=== PATIENT | female | born 1940 | race Caucasian/White ===

== ENCOUNTER → 2017-05-28 | Outpatient (CLI) | payer MEDICARE, OTHER ==
[~2017-05-28] MED LIST: AMLO2.5T74 PO; CA C1TAB85 PO; CELE-1 PO; CEPH250S35 PO; CHOL10005 PO; CYC10 PO; CYCL10TA29 PO; HCTZ; HYDR25SU35 RC; LISI-351 PO; LOVA40TA89 PO; MELO-149 PO; MELO-207 PO; MET500 PO; METF-410 PO; METF-420 PO; METF500T4 PO; METO100T20 PO; OXY5 PO; OXYB5TAB86 PO; PNEU0.5D3 IM; POLY17PO25 PO; PRA20 PO; PRED-1 PO; PRED20TA6 PO; RABE20TA33 PO; RANI-318 PO; SIMV-49 PO; SPIR1TAB26 PO; SPIR1TAB28 PO; TRAM-420 PO; TRAZ-156 PO; VIT C; WAR5 PO; WARF5TAB23 PO; [UNRECOGNIZED DRUG - CODE] PO
== END ==
LOC: LAB 15:45
PROVIDERS: ATTEND Nurse Practitioner Family
DX: E11.9 Type 2 diabetes mellitus without complications (principal); E78.00 Pure hypercholesterolemia, unspecified; I10 Essential (primary) hypertension
CPT/HCPCS: 36415; 82040; 82247; 82310; 82374; 82435; 82565; 82947; 83036; 84075; 84132; 84155; 84295; 84443; 84450; 84460; 84520

== ENCOUNTER → 2017-06-30 | Outpatient (CLI) | payer MEDICARE, OTHER | LOC: AUD 13:00 | PROVIDERS: ATTEND Nurse Practitioner Family | DX: H91.90 Unspecified hearing loss, unspecified ear (principal) | CPT/HCPCS: 92552 ==

== ENCOUNTER → 2017-07-13 | Outpatient (CLI) | payer MEDICARE, OTHER ==
--- NOTE | 2017-07-13 16:14 | RADIOLOGY IMAGING REPORT ---
[facility] PATIENT NAME: Chrystal Desai : 1940 MR: [id number] V: [id number] EXAM DATE: ORDERING PHYSICIAN: TAE VAN TECHNOLOGIST: Location: [facility] Patient: Chrystal Desai : 1940 Visit/Account:[id number] Date of Sevice: 07/13/2017 3 views right ankle INDICATION: Ankle swelling with pain COMPARISON: None Available FINDINGS: There is soft tissue swelling at the level of the ankle. Distal tibia and fibula are intact. Mortis e is symmetric. No fracture or destructive osseous process. Signs are calcaneal spurring is noted. Subtle enthesopathy insertion of the Achilles tendon. IMPRESSION: 1. Soft tissue swelling without acute osseous finding Report Dictated By: Inderjit Mcdonald MD at 07/13/2017 4:08 PM Report E-Signed By: Inderjit Mcdonald MD at 07/13/2017 4:09 PM WSN:[email or web address] R
== END ==
LOC: LAB 15:12
PROVIDERS: ATTEND Nurse Practitioner Family
DX: M25.471 Effusion, right ankle (principal)
CPT/HCPCS: 36415; 85379

== ENCOUNTER 2017-07-21 15:16 | Emergency (ER) | payer MEDICARE, OTHER ==
--- NOTE | 2017-07-21 15:33 | ER Report ---
History and Physical Time Seen By MD: 15:25 Hx. of Stated Complaint: swelling and pain to R foot for about 1 mos, did cut foot at that time but doesn't know if that is related, diabetic and has had similar pain to L foot in the past HPI/ROS CHIEF COMPLAINT: r foot swelling HISTORY OF PRESENT ILLNESS: Pt has had swelling of her r foot for 4 weeks. Saw Her pcp 07/13 who did a d-dimer which was neg and an xray which was neg. Her pcp also arranged for her to see orthopedic electronic health records specialist, Dr. Thibodeaux, this . Pt came to the emergency room today because the swelling and pain is worse. Pt denies any trauma. pts left calf is swollen but states that is not new. Has had swelling or fight calf since had dvt which she is on coumadin. Pt is diabetic but has no fever or redness to the foot. no new numbness. Pain used to be at plantar surface of her foot but is now through out the foot. Ps is diabetic but states this is not neuropathy REVIEW OF SYSTEMS: Constitutional: No fever, no chills. Eyes: No discharge. ENT: No sore throat. Cardiovascular: No chest pain, no palpitations. Respiratory: No cough, no shortness of breath. Gastrointestinal: No abdominal pain, no vomiting. Genitourinary: No hematuria. Musculoskeletal: No back pain + R foot pain Skin: No rashes. Neurological: No headache. Allergies: Coded Allergies: No Known Drug Allergies (Verified , 07/21/17) Home Meds Active Scripts Tramadol Hcl (TRAMADOL HCL) 50 Mg Tablet, 0.5 TAB PO Q6H, #30 TAB 0 Refills Prov:TAE VAN APRN-C 07/16/17 Ranitidine Hcl (RANITIDINE HCL) 150 Mg Tablet, 1 TAB PO QDAY, #90 TAB 1 Refill Prov:TAE VAN APRN-C 06/24/17 Metoprolol Succinate (METOPROLOL SUCCINATE) 100 Mg Tab.er.24h, 1 TAB PO QDAY, # 90 TAB 3 Refills Prov:TAE VAN APRN-C 03/13/17 Simvastatin (SIMVASTATIN) 20 Mg Tablet, 1 TAB PO HS, #90 TAB 3 Refills Prov:TAE VAN APRN-C 01/21/17 Warfarin Sodium (WARFARIN SODIUM) 5 Mg Tablet, 0.5-1 TAB PO QODAY, #48 TAB 4 Refills Prov:TAE VAN APRN 01/21/17 Oxybutynin Chloride (OXYBUTYNIN CHLORIDE) 5 Mg Tablet, 1 TAB PO QHS, #90 TAB 1 Refill Prov:TAE VAN APRN 12/04/16 Metformin Hcl (METFORMIN HCL) 500 Mg Tablet, 1 TAB PO QHS, #90 TAB 1 Refill TAKE ONE TABLET BY MOUTH ONCE A DAY WITH FOOD Prov:TAE VAN APRN-Kandi 09/08/16 Reported Medications Cholecalciferol (Vitamin D3) (VITAMIN D3) 1,000 Unit Tablet, 1000 TAB PO DAILY, #100 TAB 4 Refills 06/08/14 Past Medical/Surgical History Pmhx: dvt, hyperlipid, htn, dm, gerd, back pain, OA, osteopenia, obesity Pshx: gavino, tubal ligation Reviewed Nurses Notes: Yes Old Medical Records Reviewed: Yes Hx Smoking: No Smoking Status: Never Smoker Exposure to Second Hand Smoke?: No Hx Substance Use Disorder: No Hx Alcohol Use: No Constitutional Vital Sign - Last 24 Hours 07/21/17 07/21/17 07/21/17 07/21/17 15:22 15:24 15:30 15:31 Temp 98.6 Pulse 77 73 Resp 18 B/P (MAP) 140/67 140/67 (91) 122/56 (78) Pulse Ox 89 93 07/21/17 07/21/17 07/21/17 07/21/17 15:45 15:46 16:00 16:01 Pulse 67 70 B/P (MAP) 129/53 (78) 114/56 (75) Pulse Ox 94 94 07/21/17 07/21/17 07/21/17 07/21/17 16:15 16:15 16:16 16:30 Pulse 69 70 70 B/P (MAP) 132/71 (91) 132/71 (91) 128/55 (79) Pulse Ox 93 93 93 07/21/17 07/21/17 07/21/17 16:45 17:00 17:15 Pulse 71 66 78 B/P (MAP) 137/66 (89) 106/52 (70) 60/43 (49) Pulse Ox 92 94 87 Physical Exam General appearance: [alert no distress] Right foot/ ankle: There is significant swelling diffusely around foot and ankle up to mid calf. There is no obvious deformity to the ankle. There is moderate tenderness to the lateral malleolus and plantar surface of the foot. Ankle joint is stable and there is no tenderness over the achilles tendon. The foot is diffusely tender with swelling. Skin: no erythema or increased warmth; Neurologic exam: The patient has normal sensation distal to the injury. Vascular exam: Normal pulses and capillary refill in the foot DIFFERENTIAL DIAGNOSIS: After history and physical exam differential diagnosis was considered for ankle injury including sprain,pseudogout, plantar fasciitis, charcot foot,diabetic neuropathy and soft tissue injury. Medical Decision Making Data Points Result Diagram: 07/21/17 1553 07/21/17 1552 Laboratory Hematology Test 07/21/17 15:52 07/21/17 15:53 Sodium Level 143 mmol/L (137-145) Potassium Level 4.2 mmol/L (3.5-5.0) Chloride Level 104 mmol/L (98-107) Carbon Dioxide Level 25 mmol/L (22-31) Blood Urea Nitrogen 21 mg/dl (7-18) Creatinine 1.30 mg/dl (0.52-1.04) Glomerular Filtration Rate Calc 40.0 Random Glucose 126 mg/dl (75-110) Calcium Level 10.0 mg/dl (8.4-10.2) Red Blood Count 4.73 M/uL (4.17-5.56) Mean Corpuscular Volume 92.4 fL (80.0-96.0) Mean Corpuscular Hemoglobin 32.2 pg (26.0-33.0) Mean Corpuscular Hemoglobin Concent 34.8 g/dL (32.0-36.0) Red Cell Distribution Width 12.9 % (11.5-14.5) Mean Platelet Volume 8.2 fL (7.2-11.1) Neutrophils (%) (Auto) 64.5 % (39.4-72.5) Lymphocytes (%) (Auto) 21.5 % (17.6-49.6) Monocytes (%) (Auto) 11.6 % (4.1-12.4) Eosinophils (%) (Auto) 1.5 % (0.4-6.7) Basophils (%) (Auto) 0.9 % (0.3-1.4) Nucleated RBC Relative Count (auto) 0.0 /100WBC Neutrophils # (Auto) 3.9 K/uL (2.0-7.4) Lymphocytes # (Auto) 1.3 K/uL (1.3-3.6) Monocytes # (Auto) 0.7 K/uL (0.3-1.0) Eosinophils # (Auto) 0.1 K/uL (0.0-0.5) Basophils # (Auto) 0.1 K/uL (0.0-0.1) Nucleated RBC Absolute Count (auto) 0.00 K/uL Prothrombin Time 29.8 seconds (12.0-14.4) Prothromb Time International Ratio 2.73 Chemistry Test 07/21/17 15:52 07/21/17 15:53 Glomerular Filtration Rate Calc 40.0 Calcium Level 10.0 mg/dl (8.4-10.2) White Blood Count 6.1 k/uL (4.5-11.0) Red Blood Count 4.73 M/uL (4.17-5.56) Hemoglobin 15.2 g/dL (12.0-16.0) Hematocrit 43.7 % (34.0-47.0) Mean Corpuscular Volume 92.4 fL (80.0-96.0) Mean Corpuscular Hemoglobin 32.2 pg (26.0-33.0) Mean Corpuscular Hemoglobin Concent 34.8 g/dL (32.0-36.0) Red Cell Distribution Width 12.9 % (11.5-14.5) Platelet Count 203 K/uL (150-450) Mean Platelet Volume 8.2 fL (7.2-11.1) Neutrophils (%) (Auto) 64.5 % (39.4-72.5) Lymphocytes (%) (Auto) 21.5 % (17.6-49.6) Monocytes (%) (Auto) 11.6 % (4.1-12.4) Eosinophils (%) (Auto) 1.5 % (0.4-6.7) Basophils (%) (Auto) 0.9 % (0.3-1.4) Nucleated RBC Relative Count (auto) 0.0 /100WBC Neutrophils # (Auto) 3.9 K/uL (2.0-7.4) Lymphocytes # (Auto) 1.3 K/uL (1.3-3.6) Monocytes # (Auto) 0.7 K/uL (0.3-1.0) Eosinophils # (Auto) 0.1 K/uL (0.0-0.5) Basophils # (Auto) 0.1 K/uL (0.0-0.1) Nucleated RBC Absolute Count (auto) 0.00 K/uL Prothrombin Time 29.8 seconds (12.0-14.4) Prothromb Time International Ratio 2.73 Coagulation Test 07/21/17 15:53 Prothrombin Time 29.8 seconds Prothromb Time International Ratio 2.73 ED Course/Re-evaluation ED Course 07/21/2017 4:15:[address] Gipson, covering orthopedist. He did not feel an MRI would be helpful. With pts story thought it could be psuedogout or charcot foot. Did feel US would be helpful to make sure the arterial and venous flow is okay. If pts renal function was stable he recommended indomethacin until she can be seen by ortho this . Also recommend a boot for stablilzation 07/21/2017 4:52:07 pm Pts daughter now told me that the patient did have a cut on her foot from glass a month or so ago. Area that was cut is not evident now but daughter points to her r lateral foot. xray is ordered. 07/21/2017 5:36:52 pm spoke with pt and family. Understand will hold off on MRI until she is seen by orthopedics. Pt is happy with that plan due to she is claustrophobic and does not want an MRI anyway. Will place pt in a boot. Pts GFR is 40 so not a candidate for correction indomethasin and also on warfarin. Pt has tramadol at home but will not use due to makes her feel poorly. Did review the risk of indocin with pt and her daughter. Understand that it can affect her kidney function and is also not recommended correction with coumadin. Will try a two day course of Indomethacin to use only as needed and will give the lowest dose possible. If not helping she will not take. Decision to Disposition Date: July 21, 2017 Decision to Disposition Time: 17:39 Depart Departure Latest Vital Signs Vital Signs Date Time Temp Pulse Resp B/P (MAP) Pulse Ox O2 Delivery O2 Flow Rate FiO2 07/21/17 17:15 78 60/43 (49) 87 07/21/17 15:22 98.6 18 Impression: Primary Impression: Foot pain, right Additional Impression: Foot swelling Condition: Condition Unchanged Disposition: HOME OR SELF-CARE Referrals: TAE VAN APRN MANAGER OF CORPORATE COMMUNICATIONS-C (PCP) DAYAN AGUIAR MD New Scripts Indomethacin (INDOMETHACIN) 25 Mg Capsule 25 MG PO Q8-12H Y for SEVERE PAIN, #6 CAPSULE Prov: DUYEN VIDALES DO 07/21/17 Patient Instructions: GENERAL ER DISCHARGE INSTRUCTIONS Additional Instructions: Follow up with [facility] this as scheduled. Keep foot elevated as much as possible. When walking use your boot. Your xray did not show any fractures, dislocations or foreign bodies. If your pain is severe you may use Indocin one pill every 8-12 hours. You can not use motrin, advil, ibuprofen, naprosyn, alieve with this medication. Problem Qualifiers DUYEN VIDALES DO July 21, 2017 15:33
[2017-07-21 15:59] LABS: PLATELET COUNT, AUTOMATED 203 K/uL (150-450)
[2017-07-21 16:09] LABS: INR 2.73
--- NOTE | 2017-07-21 17:12 | RADIOLOGY IMAGING REPORT ---
FACILITY: [facility] PATIENT NAME: Chrystal Desai : 1940 MR: [id number] V: [id number] EXAM DATE: ORDERING PHYSICIAN: DUYEN VIDALES TECHNOLOGIST: Location: [facility] Patient: Chrystal Desai : 1940 Visit/Account:[id number] Date of Sevice: 07/21/2017 Exam type: VENOUS DOPP LOW RIGHT EXTREMIT History: r leg swelling Comparison: None. Findings: The right lower extremity veins were imaged including the right common femoral vein, greater saphenou s vein, superficial femoral vein, popliteal vein, posterior tibial vein, anterior tibial vein and per foley veins revealing no evidence of intraluminal thrombi. The veins were compressible and demonstra macario normal augmentation IMPRESSION: 1. No sonographic evidence DVT involving the right lower extremity veins Report Dictated By: Cyndie Alicia MD at 07/21/2017 5:06 PM Report E-Signed By: Cyndie Alicia MD at 07/21/2017 5:07 PM WSN:[email or web address]
[2017-07-21 17:15] VITALS: BP 60/43
--- NOTE | 2017-07-21 17:21 | RADIOLOGY IMAGING REPORT ---
FACILITY: [facility] PATIENT NAME: Chrystal Desai : 1940 MR: [id number] V: [id number] EXAM DATE: ORDERING PHYSICIAN: DUYEN VIDALES TECHNOLOGIST: Location: [facility] Patient: Chrystal Desai : 1940 Visit/Account:[id number] Date of Sevice: 07/21/2017 Exam type: ARTERIAL LOWER EXT RIGHT History: r leg swelling Comparison: None. Findings: There is triphasic flow seen throughout the right lower extremity arterial tree other than biphasic f low in the right peroneal artery.. The peak systolic velocities in the right lower extremity as nori ured in centimeters per second are as follows: , Femoral artery 115 Profunda femoral artery 97 Proximal SFA 148 Mid SFA 137 Distal SFA 1:15 Proximal popliteal artery 89 Distal popliteal artery 92 Peroneal artery 27 Posterior tibial artery 90 Anterior tibial artery 67 Dorsalis pedis artery 67 IMPRESSION: 1. Triphasic flow seen throughout the right lower extremity arterial tree other than biphasic flow in th e right peroneal artery which demonstrates diminished flow Report Dictated By: Cyndie Alicia MD at 07/21/2017 5:13 PM Report E-Signed By: Cyndie Alicia MD at 07/21/2017 5:18 PM WSN:[email or web address]
--- NOTE | 2017-07-21 17:24 | RADIOLOGY IMAGING REPORT ---
FACILITY: [facility] PATIENT NAME: Chrystal Desai : 1940 MR: [id number] V: [id number] EXAM DATE: ORDERING PHYSICIAN: DUYEN VIDALES TECHNOLOGIST: Location: [facility] Patient: Chrystal Desai : 1940 Visit/Account:[id number] Date of Sevice: 07/21/2017 Exam type: FOOT 3 VIEW RIGHT History: pain Comparison: Right foot pain all day. Findings: There is soft tissue swelling seen about the right ankle in the right foot. No evidence of acute fra cture or dislocation is seen. There is a small right calcaneal spur. No bony erosion is identified IMPRESSION: 1. Extensive soft tissue spine about the right ankle and right foot although no underlying fracture or bony erosion is seen Report Dictated By: Cyndie Alicia MD at 07/21/2017 5:18 PM Report E-Signed By: Cyndie Alicia MD at 07/21/2017 5:20 PM WSN:[email or web address]
[2017-07-21] MEDS ORDERED: INDOMETHACIN 25 MG CAP PO ONE (17:25)
[2017-07-21] MEDS ORDERED: INDO-1 PO (17:44)
== END 2017-07-21 18:10 | disposition home or self-care (01) ==
LOC: ER 15:39
DX: M79.671 Pain in right foot (principal); E11.9 Type 2 diabetes mellitus without complications; M79.89 Other specified soft tissue disorders
CPT/HCPCS: 36415; 73630; 85025; 85610; 93926; 93971; 99283; A9270; 82310; 82374; 82435; 82565; 82947; 84132; 84295; 84520

== ENCOUNTER 2017-08-26 14:30 | Outpatient (RCR) | payer MEDICARE, OTHER ==
--- NOTE | 2017-06-16 14:42 | PT INITIAL EVALUATION ---
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 She hurt her lumbar spine with two injuries in the remote past. She notes she can only stand 10 min., which limits her cooking, and R L5 symptoms disrupt her sleep 3-4x/ night. Oswestry Disability Index 53%. Pain location is L-S, R SI and R L5 at the peroneals and described as ache. Pain scale is on a ten point pain scale. Pain is worse with standing, walking short community distances and better with sitting turned L. REHAB PROBLEM LIST: Increased Pain Decreased ROM Decreased Strength Decreased Balance Decreased Function Decreased ADL's Decreased Mobility Decreased Gait PREVIOUS MEDICAL HISTORY: DVT, DMII, lumbar OA, morbid obesity. OCCUPATION: Retired. OBJECTIVE: Posture: R anterior rotation iliac crest, mild L lateral lumbar shift. ROM: AROM lumbar spine WNL flexion, reduces pain, 50% extension, painful at end ROM, WNL R side glide, minimal L side glide, painful. Seated flexion with L rotation increases R L5 pain while seated and standing repeated extension centralizes symptoms slightly. Palpation: Painful, jump sign R L-S and posterior hip, not peroneals. Special Tests: Negative sidelie SLR, B. DTR's 2/3 quads and Achilles tendons. Mobility: Difficulty with bed mobility due to size and reduced trunk and hip strength. Gait: Leans to ipsilateral side in gait, B, R more than L. ASSESSMENT: Chrystal Desai presents with lumbar disc derangement affecting R L5 symptoms, function and gait. She's started on HEP with extension focus, which reduced her symptoms. Short Term Goals/Patient's Goals 4 weeks: Chrystal sleeps through 4 hours of the night without awakening due to R L5 pain, R L5 radicular pain centralized to the R hip. 8 weeks: No R L5 pain, Chrystal stands 30 min. cooking, and sleeps without awakening due to R L5 pain. PLAN: Patient to be seen for Manual Therapy Strengthening/condition Ice/Heat Range of Motion Spinal Stabilization Stretching Neuromuscular Re-ed Electrical Stim Posture/Body mechanics Gait Trg/Balance Trg Home Exercise Program 2x/Week for 2 Months Thank you for this referral. If you have any questions, comments, or concerns about this report or plan, please contact me at . [facility]
--- NOTE | 2017-07-28 16:25 | PT PLAN OF CARE ---
Physician: Lisa Upton APRN OPERATIONS SPECIALIST-C Patient is being seen: 2x/week Therapist: Isis Gutierrez PT Medical Diagnosis: M54.5 LBP radiating to the R leg Treatment Diagnosis: Same Date of Onset: 03/23/09 Date of Initial Evaluation: 06/16/17 Date patient was last seen: 07/28/17 Number of treatments: 10 Number of cancellations/No shows: 3 INTERVENTIONS: Spinal Stabilization, Range of Motion, Manual Therapy, Strengthening, Heat, Electrical Stim, Home Exercise Program GOALS/PATIENT'S GOAL: 4 weeks: Chrystal sleeps through 4 hours of the night without awakening due to R L5 pain (met), R L5 radicular pain centralized to the R hip (met). 8 weeks: No R L5 pain (met), Chrystal stands 30 min. cooking (not met), and sleeps without awakening due to R L5 pain (met). New Goals: 8 weeks: Chrystal transfers in/out of cars without LBP, Chrystal shops with a store electric cart. (not met) 12 weeks: Short distance community ambulation without LBP. (not met) Patient Compliance: Good Prognosis: Excellent Reasons for continuing therapy: S: Chrystal cancelled last week due to R foot edema and pain. She reports her LBP and R L5 symptoms are gone. She saw a foot MD at [facility] and is in a high tide R walking boot, restricted ambulation. Oswestry Disability index improved to 38%. Chrystal relates she's sleeping through the night without awakening due to R L5 or LBP symptoms. She's limited in standing and gait due to R foot. She would like to return to shopping in the community, improve car transfers as this tweaks her lumbar spine. Posture: Midline lumbar spine, seated. ROM: AROM lumbar spine WNL. Seated flexion with L rotation without R L5 pain. Strength: R hip abductors, adductors, flexors 3-/5, L 3+/5. Gait: Hand held assist 10 feet no WS R. Mobility: Difficulty with bed mobility due to size and reduced trunk and hip strength. Other: Negative sidelie SLR R LE. A/P: Chrystal Desai did well with lumbar extension ROM, but needs to strengthen her core and R LE for preparation for gait and for standing tolerance. If you agree, we'll increase the frequency to 3x/week, another 2 months. Thank you. LILLIAM
[~2017-08-26 14:30] MED LIST changes: +INDO-1 PO; -METF-410 PO; +METF-411 PO
--- NOTE | 2017-08-26 15:48 | PT PLAN OF CARE ---
Physician: Lisa Upton APRN CHILDBIRTH EDUCATOR-C Patient is being seen: 2x/week Therapist: Isis Gutierrez Medical Diagnosis: M54.5 LBP radiating to the R leg Treatment Diagnosis: Same Date of Onset: 03/23/09 Date of Initial Evaluation: 06/16/17 Date patient was last seen: 08/24/17 Number of treatments: 20 Number of cancellations/No shows: 1 INTERVENTIONS: Manual Therapy, Heat, Electrical Stim, Range of Motion, Spinal Stabilization, Home Exercise Program GOALS/PATIENT'S GOAL: 4 weeks: Chrystal sleeps through 4 hours of the night without awakening due to R L5 pain (met), R L5 radicular pain centralized to the R hip (met). 8 weeks: No R L5 pain (met), Chrystal stands 30 min. cooking (progressing), and sleeps without awakening due to R L5 pain (met). New Goals: 8 weeks: Chrystal transfers in/out of cars without LBP, Chrystal shops with a store electric cart. (both met) 12 weeks: Short distance community ambulation without LBP. (progressing, 170 feet) Patient Compliance: Excellent Prognosis: Excellent Reasons for continuing therapy: S: Chrystal denies LBP, R L5 pain with sitting, standing. Her R foot pain limits standing. Oswestry Disability Index 18%. Posture: Midline lumbar spine. ROM: AROM lumbar spine WNL, no LE symptoms and no LBP. Strength: Core strength 3/5. Hip flexors 3+/5, calves 2/5. Special Tests: Negative SLR, B. Gait: R Trendelenberg, independent gait 170 feet, reduced push off. Mobility: Transfers sit<>stand independently with immediate balance control. A/P: Chrystal Desai has centralized symptoms and needs to strengthen for short distance community ambulation. If you agree, I'll see her once more for HEP instruction, then DC PT to HEP. Thank you. LILLIAM
--- NOTE | 2017-08-26 15:52 | PT PLAN OF CARE ---
Physician: Lisa Upton APRN ENDODONTIC ASSISTANT-C Patient is being seen: 2x/week Therapist: Isis Gutierrez Medical Diagnosis: M54.5 LBP radiating to the R leg Treatment Diagnosis: Same Date of Onset: 03/23/09 Date of Initial Evaluation: 06/16/17 Date patient was last seen: 08/26/17 Number of treatments: 21 Number of cancellations/No shows: 1 INTERVENTIONS: Manual Therapy, Heat, Electrical Stim, Range of Motion, Spinal Stabilization, Home Exercise Program GOALS/PATIENT'S GOAL: 4 weeks: Chrystal sleeps through 4 hours of the night without awakening due to R L5 pain (met), R L5 radicular pain centralized to the R hip (met). 8 weeks: No R L5 pain (met), Chrystal stands 30 min. cooking (progressing), and sleeps without awakening due to R L5 pain (met). New Goals: 8 weeks: Chrystal transfers in/out of cars without LBP, Chrystal shops with a store electric cart. (both met) 12 weeks: Short distance community ambulation without LBP. (progressing, 170 feet) Patient Compliance: Excellent Prognosis: Excellent Reasons for discontinuing therapy: S: Chrystal denies LBP, R L5 pain. Oswestry Disability Index 18%. She's walked into a grocery store and driven the cart in the store. Her R foot limits standing to 10 min., not her back. Posture: Midline lumbar spine. ROM: AROM lumbar spine WNL, no LE symptoms and no LBP. Strength: Chrystal's independent with her core and LE strengthening HEP. Gait: R Trendelenberg, independent gait 170 feet, reduced push off. A/P: Chrystal Desai is independent with spinal/LE strengthening HEP. I'll DC PT to HEP. Thank you. LILLIAM
[2017-08-31] MEDS ORDERED: PRED20TA6 PO (15:20)
[2017-08-31] MEDS ORDERED: RANI-318 PO (15:20)
[2017-09-08] MEDS ORDERED: ALLO100T70 PO (16:56)
[2017-09-22] MEDS ORDERED: FURO-45 PO (16:35)
== END 2017-08-26 18:00 | disposition home or self-care (01) ==
LOC: PT 14:30
PROVIDERS: ATTEND Nurse Practitioner Family
DX: M54.5 Low back pain (principal); E11.9 Type 2 diabetes mellitus without complications; E66.9 Obesity, unspecified; I82.409 Acute embolism and thrombosis of unspecified deep veins of unspecified lower extremity; M19.90 Unspecified osteoarthritis, unspecified site
CPT/HCPCS: 97010; 97110; 97140; 97162; G0283

== ENCOUNTER → 2017-09-08 | Outpatient (CLI) | payer MEDICARE, OTHER ==
[~2017-09-08] MED LIST changes: +ALLO100T70 PO
== END ==
LOC: LAB 15:00
PROVIDERS: ATTEND Nurse Practitioner Family
DX: M10.9 Gout, unspecified (principal); N18.9 Chronic kidney disease, unspecified
CPT/HCPCS: 36415; 82310; 82374; 82435; 82565; 82947; 84132; 84295; 84520; 84550

== ENCOUNTER → 2017-09-22 | Outpatient (CLI) | payer MEDICARE, OTHER ==
[~2017-09-22] MED LIST changes: +FURO-45 PO
== END ==
LOC: LAB 15:27
PROVIDERS: ATTEND Nurse Practitioner Family
DX: M10.9 Gout, unspecified (principal)
CPT/HCPCS: 36415; 82310; 82374; 82435; 82565; 82947; 84132; 84295; 84520; 84550

== ENCOUNTER → 2017-12-28 | Outpatient (CLI) | payer MEDICARE, OTHER ==
[~2017-12-28] MED LIST changes: +FLU180SY11 IM; -INDO-1 PO; +INDO-21 PO; -METF-411 PO; +METF-450 PO; +ONDA8TAB91 PO; -TRAZ-156 PO; +TRAZ50TA34 PO
[2017-12-28 17:17] LABS: PLATELET COUNT, AUTOMATED 239 K/uL (150-450)
[2017-12-28 17:32] LABS: INR 2.92
== END ==
LOC: LAB 16:55
PROVIDERS: ATTEND Nurse Practitioner Family
DX: Z51.81 Encounter for therapeutic drug level monitoring (principal); Z79.01 Long term (current) use of anticoagulants; R19.7 Diarrhea, unspecified
CPT/HCPCS: 36415; 82040; 82247; 82310; 82374; 82435; 82565; 82947; 83630; 84075; 84132; 84155; 84295; 84450; 84460; 84520; 85025; 85610; 87045; 87205; 87324; 87449

== ENCOUNTER → 2018-02-03 | Outpatient (CLI) | payer MEDICARE, OTHER ==
[2018-02-03 16:53] LABS: INR 1.45
== END ==
LOC: LAB 16:14
PROVIDERS: ATTEND Pharmacist Pharmacotherapy
DX: I82.402 Acute embolism and thrombosis of unspecified deep veins of left lower extremity (principal)
CPT/HCPCS: 36415; 85610

== ENCOUNTER → 2018-03-03 | Outpatient (CLI) | payer MEDICARE, OTHER ==
[2018-03-03 16:29] LABS: INR 1.86
== END ==
LOC: LAB 14:54
PROVIDERS: ATTEND Nurse Practitioner Family
DX: Z51.81 Encounter for therapeutic drug level monitoring (principal)
CPT/HCPCS: 36415; 85610

== ENCOUNTER → 2018-04-07 | Outpatient (CLI) | payer MEDICARE, OTHER ==
[~2018-04-07] MED LIST changes: +OXYGENHOME INH
[2018-04-07 14:00] LABS: PLATELET COUNT, AUTOMATED 195 K/uL (150-450)
[2018-04-07 14:47] LABS: INR 1.65
== END ==
LOC: LAB 13:36
PROVIDERS: ATTEND Nurse Practitioner Family
DX: Z51.81 Encounter for therapeutic drug level monitoring (principal); E78.00 Pure hypercholesterolemia, unspecified; E11.65 Type 2 diabetes mellitus with hyperglycemia; Z79.01 Long term (current) use of anticoagulants; I10 Essential (primary) hypertension; E55.9 Vitamin D deficiency, unspecified
CPT/HCPCS: 36415; 82040; 82247; 82306; 82310; 82374; 82435; 82465; 82565; 82947; 83036; 83718; 84075; 84132; 84155; 84295; 84443; 84450; 84460; 84478; 84520; 85025; 85610

== ENCOUNTER → 2018-04-12 | Outpatient (CLI) | payer MEDICARE, OTHER | LOC: RESP 07:00 | PROVIDERS: ATTEND Nurse Practitioner Family | DX: R09.02 Hypoxemia (principal); R06.02 Shortness of breath | CPT/HCPCS: 94060; 94729 ==

== ENCOUNTER 2018-04-29 14:10 | Outpatient (RCR) | payer MEDICARE, OTHER ==
[2018-04-30] MEDS ORDERED: IOPAMIDOL 76% 150 ML INFUS BTL 150 ML ONE (09:54)
[2018-04-30] MEDS ORDERED: NS(*) 0.9% 50 ML BAG 50 ML ONE (09:55)
[2018-04-30] MEDS ORDERED: LIDOCAINE/SOD BICARB 8.4% SYR ID ONE (10:00)
--- NOTE | 2018-04-30 13:41 | RADIOLOGY IMAGING REPORT ---
FACILITY: [facility] PATIENT NAME: Chrystal Desai : 1940 MR: [id number] V: [id number] EXAM DATE: ORDERING PHYSICIAN: TAE VAN TECHNOLOGIST: Location: [facility] Patient: Chrystal Desai : 1940 Visit/Account:[id number] Date of Sevice: 04/30/2018 CT CTA CHEST W & W/O CON HISTORY: hypoxia - ADDITIONAL HISTORY: None. TECHNIQUE: CTA chest with intravenous contrast. Axial imaging acquired following administration of IV contrast timed for maximum opacification of the pulmonary arterial vasculature. Slab 3-D MIP giselle nstructed images were also created for further evaluation and interpretation. Reconstruction of the [facility] data set includes multiplanar 2-D in the sagittal and coronal planes and 3-D reconstructed sienna nal slab MIP series. 3-D images were created by the technologist.Dose Lowering Technique One of the following dose optimization techniques was utilized in the performance of this exam: Autom ated exposure control; adjustment of the mA and/or kV according to the patient's size; or use of an i terative reconstruction technique. Specific details can be referenced in the facility's radiology C T exam operational policy. CONTRAST: 85 mL Isovue-370 COMPARISON: CT abdomen pelvis July 13, 2014 FINDINGS: Lungs/pleura: Prominent interstitial markings and septal thickening in the dependent portion of both lower lobes may represent dependent atelectasis although developing infiltrates not totally excluded . There is thickening versus trace amount of fluid in the minor fissure on the right. There is a th ick band of scarring versus atelectasis in the lingula. No evidence of pleural effusions There is a 5 mm noncalcified pulmonary nodule posterior inferior right upper lobe best seen on image 122 of series 11. There is additional 8 mm noncalcified nodule inferior aspect right middle lobe best seen on image 138 There is a 4 mm noncalcified nodule lateral aspect left upper lobe best seen on image 91 Heart/vessels: There is no demonstration of pulmonary emboli there are mild to moderate coronary art fernanda calcifications. Mediastinum/lymph nodes: There is a 1.6 x 1.3 cm prevascular space lymph node. There is a 1.6 x 1.2 cm right infrahilar lymph node There is a 1.3 x 0.9 cm left hilar lymph node Visualized upper abdomen: Postsurgical changes from a cholecystectomy. small capsular calcifications along the lateral border the spleen. incompletely imaged is a 1.6 cm cortical hypodensity projecting from the lateral border of the kidney . CT Hounsfield units suggest this is a cyst Bones/soft tissues: There is a 2 cm mass projecting from the lower pole of the right lobe of the thy roid gland There extensive spondylotic changes of the thoracic spine Additional findings: None IMPRESSION: No evidence of pulmonary emboli There are several noncalcified nodules measuring up to 8 mm as described above. [employer] SOC[employer] FOLLOW-UP GUIDELINES FOR NEWLY DETECTED INCIDENTAL NODULES IN PERSONS 35 YEARS OF AGE OR OLDER. *These recommendations do NOT apply to lung cancer screening, patients with immunosuppression or rafael ents with a known primary malignancy. MULTIPLE SOLID NODULES If nodule size is < 6 mm: * Low risk patient ? No routine follow-up. * High risk patient ? Optional CT at 12 months. If nodule size is 6-8 mm: * Low risk patient ? CT at 3-6 months, then consider CT at 18-24 months if no change. * High risk patient ? CT at 3-6 months, then CT at 18-24 months if no change. If nodule size is > 8 mm: * Low risk patient ? CT at 3-6 months, then consider CT at 18-24 months if no change. * High risk patient ? CT at 3-6 months, then consider CT at 18-24 months if no change. LOW RISK PATIENT: Minimal or absent history of tobacco use and of other known risk factors. HIGH RISK PATIENT: Tobacco use, family history of lung cancer, upper pulmonary lobe location of nodul e, presence of emphysema, pulmon ry fibrosis, older age. Mariely H, Dennise DP, Colnio JM, et al. Guidelines for Management of Incidental Pulmonary Nodules Dete cted on CT Images: From the Fleischner Society 2017. Radiology. uchnipnMild hilar and mediastinal adenopathy. This could be reactive however short-term interval fol low-up recommended.. 2 cm mass projecting from the lower pole the right lobe the thyroid gland. Thyroid ultrasound may be helpful for further evaluation Additional chronic findings as described Report Dictated By: Cyndie Alicia MD at 04/30/2018 1:23 PM Report E-Signed By: Cyndie Alicia MD at 04/30/2018 1:37 PM WSN:[email or web address]
[2018-05-03] MEDS ORDERED: OXYGENHOME INH (08:43)
[2018-05-04] MEDS ORDERED: WARF5TAB23 PO (16:52)
[2018-05-04] MEDS ORDERED: ALLO100T70 PO (16:52)
[2018-05-04] MEDS ORDERED: SIMV-49 PO (16:52)
== END 2018-04-30 18:00 | disposition home or self-care (01) ==
LOC: CT 14:10 → EDSTATUS 04-30 14:10 → CT 04-30 18:00
PROVIDERS: ATTEND Nurse Practitioner Family
DX: R09.02 Hypoxemia (principal); R06.01 Orthopnea; M10.9 Gout, unspecified; Z79.899 Other long term (current) drug therapy; R91.8 Other nonspecific abnormal finding of lung field
CPT/HCPCS: 36415; 71275; 83880; J7050; Q9967

== ENCOUNTER → 2018-05-26 | Outpatient (CLI) | payer MEDICARE, OTHER ==
[~2018-05-26] MED LIST changes: +IOPAMIDOL 76% 100 ML INFUS BTL 100 ML ONE
--- NOTE | 2018-05-26 13:58 | RADIOLOGY IMAGING REPORT ---
FACILITY: [facility] [place]IENT NAME: Chrystal Desai : 1940 MR: [id number] V: [id number] EXAM DATE: ORDERING PHYSICIAN: TAE VAN TECHNOLOGIST: Location: [facility] Patient: Chrystal Desai : 1940 Visit/Account:[id number] Date of Sevice: 05/26/2018 THYROID HISTORY: thyroid nodule COMPARISON: CTA of the chest to better 2018 FINDINGS: SIZE: Normal. Right lobe: 4.9 x 1.2 x 2 cm Left lobe: 4.5 x 1.2 x 1.2 cm Isthmus: 3 mm PARENCHYMA: Heterogeneous bilaterally NODULES: Right lobe: * In the superior pole the right lobe there is a 1.3 x 1.4 x 1.1 cm slightly irregular hypoechoic no dule. * In the inferior right lobe is a 1.1 x 1.1 x 0.9 cm well-circumscribed hypoechoic nodule * In the inferior right lobe there is a 1.1 x 1.1 x 0.7 cm echogenic nodule * Posterior to the mid right lobe there is a 1.3 x 0.9 x 0.4 cm ovoid hypoechoic nodule possibly rep resenting a parathyroid gland Left lobe: * None discrete. Isthmus: * None discrete. VASCULARITY: Within normal limits. ADDITIONAL FINDINGS: None. IMPRESSION: Multiple right-sided thyroid nodules. Ultrasound guided fine-needle aspiration is recommended for th e 1.4 cm slightly irregular hypoechoic nodule in the superior pole and the 1.1 cm well-circumscribed hypoechoic nodule in the inferior right lobe REFERENCE: 2015 [place] [employer] Management Guidelines for Adult Patients with Thyroid Nodules and D ifferentiated Thyroid Cancer: The [place] [employer] Guidelines Task Force on Thyroid Nodul es and Differentiated Thyroid Cancer. SONOGRAPHIC PATTERNS: * Benign: Purely cystic nodules (no solid component); estimated risk of malignancy <1 percent; no bi opsy recommended. * Very Low Suspicion: Spongiform or partially cystic nodules without any of the sonographic features described in low, intermediate, or high suspicion patterns; estimated risk of malignancy <3 percent; consider FNA at > 2 cm (Observation without FNA is also a reasonable option). * Low Suspicion: Isoechoic or hyperechoic solid nodule, or partially cystic nodule with eccentric so lid areas, without microcalcification, irregular margin or ETE (extra-thyroidal extension), or taller than wide shape; estimated risk of malignancy 5-10 percent; recommend FNA at >1.5 cm. * Intermediate Suspicion: Hypoechoic solid nodule with smooth margins without microcalcifications, E TE (extra-thyroidal extension), or taller than wide shape; estimated risk of malignancy 10-20 percent ; recommend FNA at > 1 cm. * High Suspicion: Solid hypoechoic nodule or solid hypoechoic component of a partially cystic nodule with one or more of the following features: irregular margins (infiltrative, microlobulated), microc alcifications, taller than wide shape, rim calcifications with small extrusive soft tissue component, evidence of ETE (extra-thyroidal extension); estimated risk of malignancy >70-90 percent; recommend FNA at > 1 cm. NOTES: * Although a sonographically suspicious subcentimeter thyroid nodule without evidence of extrathyroi smita extension or sonographically suspicious lymph nodes may be observed with close sonographic follow -up rather than pursuing immediate FNA, patient age and preference may modify decision-making. A > 50% interval increase in nodule volume and/or development of new suspicious sonographic features are felt to be a valid reasons for potential re-aspiration of a nodule previously shown to have benig n FNA cytology. Report Dictated By: Cyndie Alicia MD at 05/26/2018 1:48 PM Report E-Signed By: Cyndie Alicia MD at 05/26/2018 1:54 PM WSN:[email or web address]
--- NOTE | 2018-05-26 15:07 | RADIOLOGY IMAGING REPORT ---
FACILITY: [facility] [place] PATIENT NAME: Chrystal Desai : 1940 MR: [id number] V: [id number] EXAM DATE: ORDERING PHYSICIAN: TAE VAN TECHNOLOGIST: Location: [facility] [place] Patient: Chrystal Desai : 1940 Visit/Account:[id number] Date of Sevice: 05/26/2018 EXAMINATION: CT Chest Without and With Contrast 05/26/2018 8:47 AM HISTORY: hilar lymphadenopathy, lung nodules TECHNIQUE: Spiral scans were obtained through the chest before and during injection of nonionic iodi nated intravenous contrast. Contrast: 75 mL of IV Isovue 370. One of the following dose optimization techniques was utilized in the performance of this exam: Autom ated exposure control; adjustment of the mA and/or kV according to the patient's size; or use of an i terative reconstruction technique. Specific details can be referenced in the facility's radiology C T exam operational policy. COMPARISON STUDIES: 04/30/2018. FINDINGS: Lungs / pleura: Bilateral noncalcified pulmonary nodules are unchanged, largest 6 mm in the right mid dle lobe above the hemidiaphragm (series 3 image 45). Stable linear scarring along the back of the li ngula and in the basilar aspect of the lower lobes right more than left. Dependent groundglass hazine ss in the lungs is similar to previous. Mediastinum / alla: negative Heart / pericardium: negative Vessels: Atherosclerosis includes coronary disease. Musculoskeletal / Body wall: Ovoid just over 1 cm nodule in the posterior medial left breast. Lymph node assessment: Nodes are not significantly changed. Prevascular lymph node 1.5 x 1.3 cm. Righ t hilar lymph node 1.7 x 1.3 cm. Left hilar lymph node 1.3 x 1.0 cm. Lower neck: Tiny hypoenhancing or cystic posterior left lobe thyroid nodule. Exophytic inferior pole lobulation or nodule on the right is unchanged. Upper abdomen: Prior cholecystectomy. Likely fatty liver. Benign-appearing capsular calcifications po sterolaterally on the spleen. IMPRESSION: Stable CT appearance of the chest comparing with 04/30/2018. Based on largest pulmonary nodule, a 3-6 m onth interval from the April study would be the standard recommendation. I think a 6 month interva l from this study would now be reasonable. Follow-up imaging with contrast only should be adequate. Report Dictated By: Mikey Bowers MD at 05/26/2018 2:28 PM Report E-Signed By: Mikey Bowers MD at 05/26/2018 3:02 PM WSN:[email or web address]
== END ==
LOC: CT 01:45
PROVIDERS: ATTEND Nurse Practitioner Family
DX: R91.1 Solitary pulmonary nodule (principal); E04.2 Nontoxic multinodular goiter
CPT/HCPCS: 36415; 71270; 76536; 82565; Q9967

== ENCOUNTER → 2018-06-14 | Outpatient (CLI) | payer MEDICARE, OTHER ==
[~2018-06-14] MED LIST changes: -IOPAMIDOL 76% 100 ML INFUS BTL 100 ML ONE
[2018-06-14 08:23] LABS: INR 1.04
--- NOTE | 2018-06-14 11:42 | RADIOLOGY IMAGING REPORT ---
FACILITY: [facility] PATIENT NAME: Chrystal Desai : 1940 MR: [id number] V: [id number] EXAM DATE: ORDERING PHYSICIAN: TAE VAN TECHNOLOGIST: Location: [facility] Patient: Chrystal Desai : 1940 Visit/Account:[id number] Date of Sevice: 06/14/2018 Ultrasound-guided fine-needle aspiration of 2 right thyroid nodules Indication: Hypoechoic right thyroid nodules which meet current criteria for FNA. Comparison: Ultrasound of the thyroid dated 05/26/2018 is reviewed. Findings: After informed consent was obtained, the patient was prepped and draped in the standard clark rile sterile fashion. Local anesthesia was obtained with 1% lidocaine. Attention was first given to the more inferior thyroid nodule. A total of 4 25-gauge FNA samples wer e obtained with continuous sonographic guidance. These were given to a member of the cytopathology t ea for processing. Attention was then given to the more superior thyroid nodule. A total of 4 25-gauge FNA samples were obtained with continuous sonographic guidance. These were given to a member of the cytopathology te am for processing. Pathologist deemed the samples adequate for interpretation. There were no immediate complications and the patient tolerated the procedure well. IMPRESSION: 1. Successful ultrasound guided fine needle aspiration of right superior and right inferior hypoechoi c thyroid nodules. Report Dictated By: Paco Hernandes at 06/14/2018 11:04 AM Report E-Signed By: Paco Hernandes at 06/14/2018 11:09 AM WSN:[email or web address]
== END ==
LOC: US 06:53
PROVIDERS: ATTEND Nurse Practitioner Family
DX: E04.1 Nontoxic single thyroid nodule (principal)
CPT/HCPCS: 10005; 36415; 76942; 85610; 88104; 88172

== ENCOUNTER → 2018-06-16 | Outpatient (CLI) | payer MEDICARE, OTHER | LOC: RESP 19:54 | PROVIDERS: ATTEND Nurse Practitioner Family | DX: G47.33 Obstructive sleep apnea (adult) (pediatric) (principal); G47.36 Sleep related hypoventilation in conditions classified elsewhere ==

== ENCOUNTER → 2018-06-18 | Outpatient (CLI) | payer MEDICARE, OTHER | LOC: LAB 16:33 | PROVIDERS: ATTEND Nurse Practitioner Family | DX: E04.2 Nontoxic multinodular goiter (principal) | CPT/HCPCS: 36415; 86376 ==

== ENCOUNTER → 2018-07-08 | Outpatient (CLI) | payer MEDICARE, OTHER | LOC: RESP 19:52 | PROVIDERS: ATTEND Nurse Practitioner Family | DX: G47.36 Sleep related hypoventilation in conditions classified elsewhere (principal); G47.33 Obstructive sleep apnea (adult) (pediatric) ==

== ENCOUNTER → 2018-09-10 | Outpatient (CLI) | payer MEDICARE, OTHER ==
[~2018-09-10] MED LIST changes: +ALBU8.5H IH; +BiPap; -TRAZ50TA34 PO; +TRAZ50TA52 PO
== END ==
LOC: RESP 01:54
PROVIDERS: ATTEND Internal Medicine
DX: R06.02 Shortness of breath (principal)